=== PATIENT | female | born 1970 | race Caucasian/White ===

== ENCOUNTER 2017-04-04 05:24 | Day surgery (SDC) | payer OTHER ==
[2017-04-04] VITALS (7 sets, daily range): BP systolic 85–119; BP diastolic 44–65; PULSE 69–80; RESP 16–18; Ht 162.6 cm; Wt 64.6 kg
[~2017-04-04] VITALS: Ht 162.6 cm; Wt 64.6 kg
--- NOTE | 2017-04-04 06:49 | PREOPHP ---
DATE OF ADMISSION: 04/04/2017 HISTORY OF PRESENT ILLNESS: This is a 46-year-old lady, 2, para 2. Her last normal menstrual period was a few days prior to admission. She was admitted for D and C, hysteroscopy and suction curettage. This patient bleeds very heavily with her periods associated with blood clots for the last one to two years, and getting worse up to the time of admission. She is known to have fibroid uterus, about 12-weeks size. She had an ultrasound showing submucosal fibroid, intramural fibroids and endometrial thickening. She had an endometrial biopsy done and it was benign. She continued to have very heavy vaginal bleeding associated with blood clots but does only want to go for D and C, hysteroscopy and suction curettage at this time. The procedures were explained to the patient and she understood everything totally. The risks, benefits and alternatives were discussed with her as well. PAST PERSONAL HISTORY: No history of diabetes, TB or asthma. ALLERGIES: NO ALLERGIES. SOCIAL HISTORY: The patient does not smoke. She does not drink. She does not take any drugs except her iron and vitamins. 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 She is 2, para 2 with one normal delivery and one C section. FAMILY HISTORY: Noncontributory. REVIEW OF SYSTEMS: CARDIOVASCULAR: No chest pain. RESPIRATORY: No cough. GASTROINTESTINAL: No diarrhea. No vomiting. GENITOURINARY: No dysuria. PHYSICAL EXAMINATION: GENERAL APPEARANCE: A conscious, coherent lady in no acute distress. VITAL SIGNS: Blood pressure 120/80. Pulse rate 80 per minute. Respirations 16 per minute. BREASTS: Within normal limits. HEART: Within normal limits. LUNGS: Within normal limits. ABDOMEN: Soft. No organomegaly. PELVIC: Exam revealed the cervix to be firm. The uterus was 12 weeks' size. Adnexa were negative for masses. RECTAL: Exam confirmed the pelvic findings. EXTREMITIES: No pedal edema. ADMITTING DIAGNOSES: 1. Intramural fibroids. 2. Submucosal fibroid. 3. Menorrhagia. PLAN: The patient is planned to have the above procedure. Dictated By: Laurie Johnson MD /[email or web address]/jono /Document#: [id number]
[2017-04-04] MEDS ORDERED: DEXAMETHASONE 4 MG/ML 1 ML INJ ONE (07:00)
[2017-04-04] MEDS ORDERED: LIDOCAINE 2% (SDV) 5 ML INJ ONE (07:00)
[2017-04-04] MEDS ORDERED: ONDANSETRON 4 MG INJ ONE (07:00)
[2017-04-04] MEDS ORDERED: IRON PILL PO (08:34)
[2017-04-04] MEDS ORDERED: LACTATED RINGER'S 1,000 ML IV SCH (09:00)
[2017-04-04] MEDS ORDERED: FENTAnyl 50 MCG/ML VIAL IV PRN ×3 (11:00)
[2017-04-04] MEDS ORDERED: ONDANSETRON 4 MG INJ IV PRN (11:00)
[2017-04-04] MEDS ORDERED: hydrALAzine 20 MG INJ IV PRN (11:00)
[2017-04-04] MEDS ORDERED: MEPERIDINE 25 MG INJ IV PRN (11:00)
[2017-04-04] MEDS ORDERED: EPHEDrine SULFATE 50 MG/5 ML SYG IV PRN (11:00)
[2017-04-04] MEDS ORDERED: OXYCODONE/ACETAMINOPHEN (5/325) TAB PO PRN ×2 (11:00)
[2017-04-04] MEDS ORDERED: DIPHENHYDRAMINE 50 MG INJ IV PRN (11:00)
[2017-04-04] MEDS ORDERED: LABETALOL HCL 20MG INJ IV PRN (11:00)
[2017-04-04] MEDS ORDERED: ACETAMINOPHEN 325 MG TAB PO PRN (12:30)
[2017-04-05] MEDS ORDERED: DEXAMETHASONE 4 MG/ML 1 ML INJ ONE (18:02)
[2017-04-05] MEDS ORDERED: FENTAnyl 50 MCG/ML VIAL ONE (18:02)
[2017-04-05] MEDS ORDERED: PROPOFOL 60 ML ONE (18:02)
--- NOTE | 2017-04-07 08:14 | OPR ---
DATE OF OPERATION: 04/04/2017 PREOPERATIVE DIAGNOSIS: Submucous fibroid menorrhagia. POSTOPERATIVE DIAGNOSIS: Submucous fibroid menorrhagia, pending pathology report. SURGEON: Laurie Johnson MD. 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 ANESTHESIA: General. OPERATION PERFORMED: Fractional dilatation and curettage. Hysteroscopy and suction curettage. TECHNIQUE: Under general anesthesia, the patient was prepped and draped in the usual fashion for vaginal surgery. Pelvic examined under anesthesia revealed the cervix to be firm, uterus about 16 weeks' size and adnexa was negative for masses. Then the heavy- weight vaginal retractor was put in placed. Anteriorly above the cervix was grasped with an Allis clamp, and the cervical dilatation of the Hegar 6 was proceeded. The uterus was sounded to about 3 inches. Then, the hysteroscopy was inserted inside the uterine cavity and connected with the light source. The uterus was distended with normal saline. There was a small fibroid noted in the lower mid portion of the uterus. Then the cervical curettage was performed. A small amount of tissue was obtained. Endometrial curettage was performed, and a good amount of tissue was obtained. Suction tip size 7 was inserted, and size 8 connected with a suction. Curettage was done, and good amount of tissue was obtained. The uterus was intact during and after the procedure. The patient tolerated the procedure well. Estimated blood loss was minimal. Vital signs were stable during and after the procedure. Dictated By: Laurie Johnson MD /[email or web address]/[email or web address] /Document#: [id number]
== END 2017-04-04 12:55 | disposition home or self-care (01) ==
LOC: SDS 05:24
PROVIDERS: ATTEND Obstetrics & Gynecology
DX: N85.00 Endometrial hyperplasia, unspecified (principal); D25.0 Submucous leiomyoma of uterus
CPT/HCPCS: 58558; 84702; 86850; 86900; 86901; 88305; J1100; J2405; Z7512; Z7610; J3010